=== PATIENT | male | born 1995 | race Caucasian/White ===

== ENCOUNTER 2019-06-06 19:35 | Emergency (ER) | payer BC ==
[2019-06-06 20:13] VITALS: BP 132/74
[2019-06-06] MEDS ORDERED: Triamcinolone Acetonide* 40 MG/ML 1 ML VIAL IM ONE (20:22)
--- NOTE | 2019-06-06 20:24 | UC ---
Skin Complaint HPI - HPI Summary HPI Summary: 23 yo male developed a pruritic rash after duck hunting rash on hands/arms/torso and genitalia - History of Current Complaint Chief Complaint: UCRash Time Seen by Provider: 06/06/19 20:17 Stated Complaint: RASH Hx Obtained From: Patient Onset/Duration: Gradual Onset Timing: Constant Onset Severity: Mild Current Severity: Moderate Pain Intensity: 0 Pain Scale Used: 0-10 Numeric Location: Generalized Character: Swelling, Pruritus, Redness Aggravating Factor(s): Nothing Alleviating Factor(s): Nothing Associated Signs & Symptoms: Positive: Rash. Negative: Nausea, Vomiting, Numbness, Thirst, Diaphoresis, Weakness, Pallor, Shivering, Difficulty Breathing , Fever, Chills, Cough, Wheezing, Chest Pain, Hoarseness, Throat Tightening, Abdominal Pain, Lightheadedness, Syncope, Drainage, Bruising, Tenderness, Red Streaks, Joint Swelling - Allergy/Home Medications Allergies/Adverse Reactions: Allergies Allergy/AdvReac Type Severity Reaction Status Date / Time No Known Allergies Allergy Verified 06/06/19 20:12 Home Medications: Home Medications NK [No Home Medications Reported] 06/06/19 [History Confirmed 06/06/19] PMH/Surg Hx/FS Hx/Imm Hx Previously Healthy: Yes - Surgical History Surgical History: None - Family History Known Family History: Positive: Non-Contributory - Social History Alcohol Use: Occasionally Substance Use Type: None Smoking Status (MU): Heavy Every Day Tobacco Smoker Review of Systems All Other Systems Reviewed And Are Negative: Yes Constitutional: Positive: Negative Skin: Positive: Rash Eyes: Positive: Negative ENT: Positive: Negative Respiratory: Positive: Negative Cardiovascular: Positive: Negative Gastrointestinal: Positive: Negative Genitourinary: Positive: Negative Motor: Positive: Negative Neurovascular: Positive: Negative Musculoskeletal: Positive: Negative Neurological: Positive: Negative Psychological: Positive: Negative Physical Exam Triage Information Reviewed: Yes Appearance: Well-Appearing, No Pain Distress, Well-Nourished Vital Signs: Initial Vital Signs Temp 98.6 F 06/06/19 20:08 Pulse 72 06/06/19 20:08 Resp 16 06/06/19 20:08 BP 132/74 06/06/19 20:08 Pulse Ox 98 06/06/19 20:08 Vital Signs Reviewed: Yes Eyes: Positive: Conjunctiva Clear ENT: Positive: Hearing grossly normal. Negative: Nasal congestion, Nasal drainage, Trismus, Muffled voice Neck: Positive: Supple, Nontender Respiratory: Positive: Lungs clear, Normal breath sounds, No respiratory distress Cardiovascular: Positive: RRR, No Murmur Musculoskeletal: Positive: Strength Intact, ROM Intact Neurological: Positive: Alert Psychological Exam: Normal Skin: Positive: Other - rash consistent with contact derm Course/Dx - Diagnoses Provider Diagnosis: Poison serena dermatitis Discharge ED - Sign-Out/Discharge Documenting (check all that apply): Patient Departure All imaging exams completed and their final reports reviewed: No Studies - Discharge Plan Condition: Stable Disposition: HOME Patient Education Materials: Poison Serena (ED) Referrals: Oscar Pierre MD [Primary Care Provider] - If Needed Additional Instructions: you had a cortisone shot today you can take 2 25 mg benadryl at bedtime if needed for itch - Billing Disposition and Condition Condition: STABLE Disposition: Home
== END 2019-06-06 20:38 | disposition home or self-care (01) ==
LOC: UCCORT 19:35
DX: L23.7 Allergic contact dermatitis due to plants, except food (principal); F17.290 Nicotine dependence, other tobacco product, uncomplicated
CPT/HCPCS: 96372; 99201; G0463; J3301

== ENCOUNTER 2019-06-12 20:26 | Emergency (ER) | payer BC ==
[2019-06-12 21:03] VITALS: BP 134/60
[2019-06-12] MEDS ORDERED: Lidocaine 2% w EPI 1:100,000* 20 ML MDV VIAL INJ ONE (21:20)
--- NOTE | 2019-06-12 21:21 | UC ---
Skin Complaint HPI - HPI Summary HPI Summary: 23 yo male had the surgical repair of a dog bite done in [place] 03/11 Here because of some purulent dc and a stitch popped out no fever - History of Current Complaint Chief Complaint: UCSkin Time Seen by Provider: 06/12/19 21:06 Stated Complaint: LEFT LEG STITCH REMOVAL Hx Obtained From: Patient Onset/Duration: Lasting Hours Timing: Constant Onset Severity: Mild Current Severity: None Pain Intensity: 0 Pain Scale Used: 0-10 Numeric Location: Discrete Aggravating Factor(s): Touch Alleviating Factor(s): Nothing Associated Signs & Symptoms: Positive: Tenderness - Allergy/Home Medications Allergies/Adverse Reactions: Allergies Allergy/AdvReac Type Severity Reaction Status Date / Time No Known Allergies Allergy Verified 06/12/19 21:04 PMH/Surg Hx/FS Hx/Imm Hx Previously Healthy: Yes - Surgical History Surgical History: Yes Surgery Procedure, Year, and Place: dog bite - Family History Known Family History: Positive: Non-Contributory - Social History Alcohol Use: Occasionally Substance Use Type: None Smoking Status (MU): Heavy Every Day Tobacco Smoker Review of Systems All Other Systems Reviewed And Are Negative: Yes Constitutional: Positive: Negative Skin: Positive: Negative Eyes: Positive: Negative ENT: Positive: Negative Respiratory: Positive: Negative Cardiovascular: Positive: Negative Gastrointestinal: Positive: Negative Genitourinary: Positive: Negative Motor: Positive: Negative Musculoskeletal: Positive: Negative Neurological: Positive: Negative Psychological: Positive: Negative Physical Exam Triage Information Reviewed: Yes Appearance: Well-Appearing, No Pain Distress, Well-Nourished Vital Signs: Initial Vital Signs Temp 99.2 F 06/12/19 20:59 Pulse 85 06/12/19 20:59 Resp 16 06/12/19 20:59 BP 134/60 06/12/19 20:59 Pulse Ox 99 06/12/19 20:59 Vital Signs Reviewed: Yes Eyes: Positive: Conjunctiva Clear ENT: Positive: Hearing grossly normal. Negative: Nasal congestion, Nasal drainage, Trismus, Muffled voice, Hoarse voice Neck: Positive: Supple, Nontender, No Lymphadenopathy Respiratory: Positive: Lungs clear, Normal breath sounds, No respiratory distress Cardiovascular: Positive: RRR, No Murmur Musculoskeletal: Positive: ROM Intact, No Edema Neurological: Positive: Alert Psychological Exam: Normal Images Front/Back of Body, Lg ([place]): 1 - loop of 4-0 nylon suture noted Procedures - Procedure Summary Procedure Summary: FOREIGN BODY REMOVAL LEFT VASQUEZ: procedure explained TO sterile prep anesth with 1 cc lido/epi tugged on loop incision made over were knot felt suture removed cleaned and dressed PRECIOUS Course/Dx - Course Course Of Treatment: nylon suture buried in scar tissue of dog bite removed - Diagnoses Provider Diagnosis: Foreign body Discharge ED - Sign-Out/Discharge Documenting (check all that apply): Patient Departure All imaging exams completed and their final reports reviewed: No Studies - Discharge Plan Condition: Stable Disposition: HOME Patient Education Materials: Soft Tissue Foreign Body (ED) Referrals: Oscar Pierre MD [Primary Care Provider] - If Needed Additional Instructions: call for any questions return for any problems - Billing Disposition and Condition Condition: STABLE Disposition: Home
== END 2019-06-12 22:02 | disposition home or self-care (01) ==
LOC: UCCORT 20:26
DX: S81.852D Open bite, left lower leg, subsequent encounter (principal); M79.5 Residual foreign body in soft tissue; F17.290 Nicotine dependence, other tobacco product, uncomplicated; W54.0XXD Bitten by dog, subsequent encounter
CPT/HCPCS: 10120; 99211; G0463